=== PATIENT | male | born 1980 | race Caucasian/White ===

== ENCOUNTER 2018-09-17 14:34 | Emergency (ER) | payer SELFPAY ==
[~2018-09-17] VITALS: Ht 193 cm; Wt 135.8 kg
[~2018-09-17 14:34] MED LIST: GLYB5TAB3; OXYC1TAB19; TRAM-48
[2018-09-17 14:49] VITALS: BP 153/94
[2018-09-17] MEDS ORDERED: DOXY100C2 PO (15:03)
[2018-09-17] MEDS ORDERED: MUPI22OI2 TP (15:03)
--- NOTE | 2018-09-17 15:03 | PHYS DOC ---
Past History Past Medical History: Diabetes Past Surgical History: No Surgical History Smoking: Greater than 1 pack/day Alcohol Use: None Drug Use: None Adult General Chief Complaint Chief Complaint: SKIN PROBLEM HPI HPI She is a 38-year-old male who presents to the emergency department for evaluation. He states he just got out of detention about a week ago, and while in detention he has developed sores all over his body, with numerous scabs and small pustular lesions on his scalp, and extremities, and back. He does admit to recent amphetamine use, but states he was not using amphetamines wound present. He states his last tetanus was 3 years ago. Denies any other complaints, fevers, or chills. He denies any other medical problems although his previous record lists that he has a history of diabetes. Review of Systems Review of Systems Constitutional: Denies fever or chills [] Eyes: Denies change in visual acuity, redness, or eye pain [] HENT: Denies nasal congestion or sore throat [] Respiratory: Denies cough or shortness of breath [] GI: Denies abdominal pain, nausea, vomiting, bloody stools or diarrhea [] Musculoskeletal: Denies back pain or joint pain [] Neurologic: Denies headache, focal weakness or sensory changes [] Allergies Allergies Allergies Coded Allergies Type Severity Reaction Last Updated Verified Penicillins Allergy Severe 07/26/13 Yes Physical Exam Physical Exam PHYSICAL EXAM: CONSTITUTIONAL: Well developed, well nourished HEAD: normocephalic, atraumatic EENT: PERRL, EOMI. Conjunctivae normal color, sclerae non-icteric; moist mucous membranes. NECK: Supple, non-tender; no meningismus. LUNGS: Lungs CTA, breathing even and unlabored. Normal air movement. HEART: Regular rate and rhythm, no murmur CHEST: No deformity; non-tender ABDOMEN: The abdomen is soft, and non-tender, no masses or bruits. EXTREM: Normal ROM; no deformity, no calf tenderness. Normal pulses palpable in all extremities. There is no pedal edema. SKIN: No rash; no diaphoresis. There are several scabbed lesions, scattered on the patient's scalp, upper extremities, and lower extremities. There is no significant surrounding erythema, or any fluctuance or exam suggestion of abscess. NEURO: the patient is mildly sedated, but alert, appears under the influence of an intoxicant; normal speech and cognition; CN's grossly intact; strength grossly intact without focal deficit. BACK: No CVA TTP. EKG EKG [] Radiology/Procedures Radiology/Procedures [] Course & Med Decision Making Course & Med Decision Making I discussed importance of establishing care with a PCP, as well as obtaining counseling for amphetamine abuse. Dragon Disclaimer Dragon Disclaimer This electronic medical record was generated, in whole or in part, using a voice recognition dictation system. Departure Departure: Impression: Primary Impression: Skin pustule Additional Impression: Amphetamine abuse Disposition: HOME, SELF-CARE Condition: STABLE Referrals: PCP,NO (PCP) Patient Instructions: Cellulitis Scripts Mupirocin (MUPIROCIN) 22 Gm Oint...g. 22 GM TP TID for to affected area, #1 TUBE Prov: GISELLA MARSH MD 09/17/18 Doxycycline Hyclate (DOXYCYCLINE HYCLATE) 100 Mg Capsule 1 CAP PO BID for -, #14 CAP Prov: GISELLA MARSH MD 09/17/18 Problem Qualifiers GISELLA MARSH MD Sep 17, 2018 15:03
== END 2018-09-17 15:06 | disposition home or self-care (01) ==
LOC: ER 14:34
DX: L08.9 Local infection of the skin and subcutaneous tissue, unspecified (principal); F15.10 Other stimulant abuse, uncomplicated; E11.9 Type 2 diabetes mellitus without complications; F17.200 Nicotine dependence, unspecified, uncomplicated; Z88.0 Allergy status to penicillin
CPT/HCPCS: 82947; 99284

== ENCOUNTER 2019-07-07 05:10 | Emergency (ER) | payer SELFPAY ==
[~2019-07-07] VITALS: Ht 193 cm; Wt 135.8 kg
[~2019-07-07 05:10] MED LIST changes: +DOXY100C2 PO; +MUPI22OI2 TP
--- NOTE | 2019-07-07 05:16 | PHYS DOC ---
Past History Past Medical History: No Pertinent History Past Surgical History: No Surgical History Smoking: Greater than 1 pack/day Alcohol Use: None Drug Use: Heroin, Methamphetamine Adult General Chief Complaint Chief Complaint: ".. I was splinting some wood.. and the axe hit a knot... and it reinitiated off and hit my right leg...on this past friday... I took some amount mom's leftover clindamycin... It seemed to be getting better but today it s worse.. I cleaned it up real good.. use Episome salt compresses.." " I just my tetanus shot 18 days. ago when I got out of [facility] in [place]..." HPI HPI Patient is a 39 year old male who presents with above hx and complaints of 8 laceration to Rt. calf area. Pt. had hit leg with an axe while trying to splint wood. Injury occurred approximately 6 days ago. Pt. advised he had been take his mom left over clindamycin and using Epson salt soaks.. Wound seemed to be healing well until 2 days ago when he stopped the antibiotics. Patient has a area of erythema around the laceration site. No striations. No adenopathy and upper leg. There is some appreciable swelling and right ankle as compared to left ankle. Distal capillary refill is equal in right ankle to left ankle comparisons. Distal neurovascular intact. Does have pain at site of laceration. Patient states his tetanus is up-to-date as of 18 days ago when he had out of [facility] detention in [place]. No recent travel outside of the [place] area. Patient denies any history of immunosuppression. Does have a history of hepatitis C and B. No specific ill contacts. Patient does smoke tobacco. Review of Systems Review of Systems Constitutional: Denies fever or chills [] Eyes: Denies change in visual acuity, redness, or eye pain [] HENT: Denies nasal congestion or sore throat [] Respiratory: Denies cough or shortness of breath [] Cardiovascular: No additional information not addressed in HPI [] GI: Denies abdominal pain, nausea, vomiting, bloody stools or diarrhea [] : Denies dysuria or hematuria [] Musculoskeletal: Denies back pain or joint pain [] Integument: Complains of laceration to right calf and now cellulitis at area of laceration. Neurologic: Denies headache, focal weakness or sensory changes [] Endocrine: Denies polyuria or polydipsia [] All other systems were reviewed and found to be within normal limits, except as documented in this note. Family History Family History Noncontributory to presentation Current Medications Current Medications See nursing for home meds Allergies Allergies Allergies Coded Allergies Type Severity Reaction Last Updated Verified Penicillins Allergy Severe 07/26/13 Yes Physical Exam Physical Exam Constitutional: Well developed, well nourished, mild distress, non-toxic appearance. [] HENT: Normocephalic, atraumatic, bilateral external ears normal, oropharynx moist, no oral exudates, nose normal. [] Eyes: PERRLA, EOMI, conjunctiva normal, no discharge. [] Neck: Normal range of motion, no tenderness, supple, no stridor. [] Cardiovascular:Heart rate regular rhythm, no murmur [] Lungs & Thorax: Bilateral breath sounds equal at apex with scattered wheezes on auscultation [] Abdomen: Bowel sounds normal, soft, no tenderness, no masses, no pulsatile masses. [] Skin: Warm, dry, no erythema, no rash. [Tattoos Back: No tenderness, no CVA tenderness. [] Extremities: No tenderness, no cyanosis, no clubbing, ROM intact, no edema. [] Except findings in right leg as per history of present illness Neurologic: Alert and oriented X 3, normal motor function, normal sensory function, no focal deficits noted. [] Psychologic: Affect anxious, judgement normal, mood normal. [] EKG EKG [] Radiology/Procedures Radiology/Procedures [] Course & Med Decision Making Course & Med Decision Making Pertinent Labs and Imaging studies reviewed. (See chart for details). Laceration was washed. Dressing with Bactracin ointment applied. Patient received a IM injection of Rocephin and Bactrim double strength. Patient to continue the Epsom salt soaks afterwards massage area were Polysporin. Patient take Bactrim DS twice a day. Patient follow-up primary care. . Patient advised if any exacerbation of symptoms will need possible admission and IV antibiotics or even surgical debridement. Must follow-up Patient encouraged to stop smoking. Patient encouraged half-way in place and avoid crowds or travel. Patient encouraged to follow with [facility] for up to date information on [place] [facility] Impression: 1. Laceration 8 cm Rt. calf- -6 days old 2. Hx. Heptatis C and B 3. Tobacco Use 4. Cellulitis [] Dragon Disclaimer Dragon Disclaimer This electronic medical record was generated, in whole or in part, using a voice recognition dictation system. Departure Departure: Disposition: 01 HOME/RESIDENCE PRIOR TO ADM Condition: STABLE Referrals: PCP,NO (PCP) Morena Disclaimer This chart was dictated in whole or in part using Voice Recognition software in a busy, high-work load, and often noisy Emergency Department environment. It may contain unintended and wholly unrecognized errors or omissions. YAEL LOUIS MD Jul 07, 2019 05:16
[2019-07-07 05:25] VITALS: BP 159/102
[2019-07-07] MEDS ORDERED: MUPIROCIN 2% TOPICAL OINTMENT 22GM TUBE. TP SCH (05:30)
[2019-07-07] MEDS ORDERED: cefTRIAXone IM 1 GM VIAL IM ONE (05:30)
[2019-07-07] MEDS ORDERED: HYDROcodon/IBUPROFEN 7.5/200MG 1 TAB TABLET PO ONE (05:30)
[2019-07-07] MEDS ORDERED: SMZ/TMP 800/160MG TABLET. PO ONE (05:30)
== END 2019-07-07 06:10 | disposition home or self-care (01) ==
LOC: ER 05:10
DX: S81.811A Laceration without foreign body, right lower leg, initial encounter (principal); L03.115 Cellulitis of right lower limb; F17.200 Nicotine dependence, unspecified, uncomplicated; Z88.0 Allergy status to penicillin; W27.0XXA Contact with workbench tool, initial encounter; Y93.89 Activity, other specified; Y92.89 Other specified places as the place of occurrence of the external cause; Y99.8 Other external cause status
CPT/HCPCS: 96372; 99284; J0696

== ENCOUNTER 2021-02-12 09:08 | Emergency (ER) | payer SELFPAY ==
[~2021-02-12] VITALS: Ht 193 cm; Wt 135.8 kg
[~2021-02-12 09:08] MED LIST changes: -DOXY100C2 PO; +DOXY100C3 PO
--- NOTE | 2021-02-12 09:45 | RAD ---
XR CHEST 1V CLINICAL INDICATIONS: Altered mental status, shortness of air. PT UNABLE TO LISTEN TO BREATHING INSTR UCTIONS COMPARISON: April 28, 2009. Findings: Chronic decreased lung volumes are seen. There is mild bilateral central interstitial lung infiltrates or bronchitis which is new. No lung consolidation or lung mass or pleural effusion or pne umothorax is seen. The heart size, pulmonary vasculature, mediastinum and both mike are unremarkable. IMPRESSION: Mild bilateral central interstitial lung infiltrates or bronchitis which is new. Electronically signed by: Anshul Higuera MD (02/12/2021 9:43 AM) [id number]
--- NOTE | 2021-02-12 09:59 | PHYS DOC ---
Past History Past Medical History: No Pertinent History Past Surgical History: Other Additional Past Surgical Histo: right rotator cuff surgery Smoking: Greater than 1 pack/day Alcohol Use: Rarely Drug Use: Heroin, Methamphetamine General Adult EDM: Chief Complaint: MEDICAL CLEARANCE HPI: HPI: 40-year-old male past medical history of IV drug use, presents the ED brought in police custody after patient was arrested at his home, concern for unresponsive state after patient reports he injected IV heroin in his left arm prior to being arrested (reported to rn he swallowed it). Denies any suicidal thoughts, ideations or attempts. Denies any coingestants including alcohol or other illicit drugs. Did not hit his head or lose consciousness. In ed states "I don't feel right. I didn't want to get arrested." Takes no prescribed medications. 2mg IV narcan used and pt returned to his normal baseline mental status. In ed for medical clearance. Review of Systems: Review of Systems: Constitutional: Denies fever or chills Eyes: Denies change in visual acuity HENT: Denies nasal congestion or sore throat Respiratory: Denies cough or shortness of breath Cardiovascular: Denies chest pain or edema GI: Denies abdominal pain, nausea, vomiting, or diarrhea : Denies incontinence or saddle anesthesia Musculoskeletal: Denies back pain or joint pain Integument: Denies rash or blistering lesions Neurologic: Denies headache, neck pain, focal weakness or sensory changes Endocrine: Denies polyuria or polydipsia Lymphatic: Denies swollen glands Psychiatric: Denies depression or anxiety Allergies: Allergies: Allergies Coded Allergies Type Severity Reaction Last Updated Verified Penicillins Allergy Severe 07/26/13 Yes Physical Exam: PE: Constitutional: no acute distress, unkept but non-toxic appearance. HENT: Normocephalic, atraumatic, no signs of head trauma Eyes: PERRLA-2mm, EOMI, conjunctiva normal, no discharge. Neck: Normal range of motion, supple, no midline neck pain Cardiovascular: S1/2 present, regular rhythm Lungs & Thorax: Speaking in full sentences, bilateral equal chest rise, no tachypnea or increased work of breathing Abdomen: soft, no tenderness, Skin: Warm, dry, no rash or erythema Back: No midline spinal step-offs or tenderness, no CVA tenderness. [] Extremities: No tenderness, no cyanosis, no lower extremity edema Neurologic: Alert and oriented X 3, GCS15, normal motor function, normal sensory function, no focal deficits noted. [] Psychologic: Affect normal, judgement normal, mood normal. [] Current Patient Data: Vital Signs: Vital Signs Date Time Temp Pulse Resp B/P (MAP) Pulse Ox O2 Delivery O2 Flow Rate FiO2 02/12/21 09:08 97.0 75 18 145/92 (109) 100 Room Air EKG: EKG: [] Radiology/Procedures: Radiology/Procedures: IMAGING REPORT Signed PATIENT: JANY LEDESMA ACCOUNT: [id number] : 1980 LOCATION: ER AGE: 40 SEX: M EXAM STATUS: REG ER ORD. PHYSICIAN: BOBBY RAHMAN DO REASON: AMS,SOA. PT UNABLE TO LISTEN TO BREATHING INSTRUCTIONS PROCEDURE: CHEST AP ONLY XR CHEST 1V CLINICAL INDICATIONS: Altered mental status, shortness of air. PT UNABLE TO LISTEN TO BREATHING INSTRUCTIONS COMPARISON: April 28, 2009. Findings: Chronic decreased lung volumes are seen. There is mild bilateral central interstitial lung infiltrates or bronchitis which is new. No lung consolidation or lung mass or pleural effusion or pneumothorax is seen. The heart size, pulmonary vasculature, mediastinum and both mike are unremarkable. IMPRESSION: Mild bilateral central interstitial lung infiltrates or bronchitis which is new. Electronically signed by: Yeny Higuera MD (02/12/2021 9:43 AM) [id number] DICTATED AND SIGNED BY: YENY HIGUERA MD DATE: 02/12/21 0941 CC: PCP,NO; BOBBY RAHMAN DO ~MTH0 0 Heart Score: C/O Chest Pain: No Risk Factors: Risk Factors: DM, Current or recent (<one month) smoker, HTN, HLP, family history of CAD, obesity. Risk Scores: Score 0 - 3: 2.5% MACE over next 6 weeks - Discharge Home Score 4 - 6: 20.3% MACE over next 6 weeks - Admit for Clinical Observation Score 7 - 10: 72.7% MACE over next 6 weeks - Early Invasive Strategies Course & Med Decision Making: Course & Med Decision Making Pertinent Labs and Imaging studies reviewed. (See chart for details) Suspect mild opioid withdrawal after Narcan use. Patient calm, resting and in no active distress. X-ray concerning for possible bronchitis versus interstitial infiltrates, will cover with Z-Senthil. Pt is 100% on RA, protecting his airway. No recurrence of apnea after an hour and a half observation after Narcan use. Patient is medically cleared for detention. Will discharge home with strict ED return precautions were given for apnea, difficulties breathing or head injury. Encouraged urgent outpatient follow-up with PMD and RSI. Life-threatening processes were considered but are low suspicion at this time, given history, physical exam and ED workup. Pt was educated on all prescription medications and adverse effects. All patient's questions were answered and pt was stable at time of discharge. Life/limb-threatening differential includes but is not limited to, end organ damage/sepsis, trauma/abuse/neglect, neurologic deficit, alcohol/drug ingestion, toxidrome, suicidal/homicidal ideations plans or attempts, psychosis or mental illness resulting in self neglect and inability to care for self. I have spoken with the patient and/or caregivers. I explained the patient's condition, diagnoses and treatment plan based on the information available to me at this time. I have answered the patient and/or caregiver's questions and addressed any concerns. The patient and/or caregivers have a good understanding of patient's diagnosis, condition and treatment plan as can be expected at this point. Vital signs have been stable. Patient's condition is stable and appropriate for discharge from the emergency department. Patient will pursue further outpatient evaluation with primary care physician or other designated or consulting physician as outlined in the discharge instructions. The patient and/or caregivers are agreeable to this plan of care and follow-up instructions have been explained in detail. The patient and/or c aregivers have received these instructions in written form and have expressed an understanding of the discharge instructions. The patient and/or caregivers are aware that any significant change of condition or worsening of symptoms should prompt immediate return to this or the closest emergency department or call to 911. Morena Disclaimer: Morena Disclaimer: This electronic medical record was generated, in whole or in part, using a voice recognition dictation system. Departure Departure: Impression: Primary Impression: Heroin overdose Additional Impression: Bronchitis Disposition: HOME / SELF CARE / HOMELESS Condition: STABLE Referrals: PCP,NO (PCP) Follow up with your pcp in 1-2 days or [facility] [phone] OR [facility]-Dr. Giordano [phone] Patient Instructions: Acute Bronchitis, Heroin Abuse and Withdrawal Additional Instructions: RSI[facility] AND FOR SUBSTANCE ABUSE MANAGEMENT [address] [place] [address] 24-hour crisis line: [phone] EMERGENCY DEPARTMENT GENERAL DISCHARGE INSTRUCTIONS Thank you for coming to [facility] (ED) today and trusting us with you care. We trust that you had a positivie experience in our Emergency Department. If you wish to speak to the department management, you may call the director at [phone]. YOUR FOLLOW UP INSTRUCTIONS ARE FOLLOWS: 1. Do you have a private Doctor? If you do not have a private doctor, please ask for a resource list of physicians or clinics that may be able to assist you with follow up care. 2. The Emergency Physician has interpreted your x-rays. The X-Ray specialist will also review them. If there is a change in the findings, you will be notified in 48 hours when at all possible. 3. A lab test or culture has been done, your results will be reviewed and you will be notified if you need a change in treatment. ADDITIONAL INSTRUCTIONS AND INFORMATION: 1. Your care today has been supervised by a physician who is specially trained in emergency care. Many problems require more than one evaluation for a complete diagnosis and treatment. We recommend that you schedule your follow up appointment as recommended to ensure complete treatment of you illness or injury. If you are unable to obtain follow up care and continue to have a problem, or if your condition worsens, we recommend that you return to the ED. 2. We are not able to safely determine your condition over the phone nor are we able to give sound medical advice over the phone. For these safety reasons, if you call for medical advice we will ask you to come to the ED for further evaluation. 3. If you have any questions regarding these discharge instructions please call the ED at [phone]. SAFETY INFORMATION: In the interest of safety, wellness, and injury prevention; we encourage you to wear your sealbelt, if you smoke; quite smoking, and we encourage family to use a protective helmet for bicycling and other sporting events that present an increased risk for head injury. IF YOUR SYMPTOMS WORSEN OR NEW SYMPTOMS DEVELOP, OR YOU HAVE CONCERNS ABOUT YOUR CONDITION; OR IF YOUR CONDITION WORSENS WHILE YOU ARE WAITING FOR YOUR FOLLOW UP APPOINTMENT; EITHER CONTACT YOUR PRIMARY CARE DOCTOR, THE PHYSICIAN WHOSE NAME AND NUMBER YOU WERE GIVEN, OR RETURN TO THE ED IMMEDIATELY. Scripts Azithromycin (AZITHROMYCIN TABLET) 250 Mg Tablet 1 PKG PO UD for lung nodule for 5 Days, #6 TAB 0 Refills 2 the first day followed by 1 for days 2-5 Prov: BOBBY RAHMAN DO 02/12/21 BOBBY RAHMAN DO Feb 12, 2021 09:59
[2021-02-12 10:15] VITALS: BP 138/75
[2021-02-12 10:45] LABS: BASO # 0.1 x10^3/uL (0.0-0.2); BASO % 1 % (0-3); EOS # 0.5 x10^3/uL (0.0-0.7); EOS % 5 % (0-3); HEMATOCRIT 38.3 % (39.0-53.0); LYMPH # 1.4 x10^3/uL (1.0-4.8); LYMPH % 15 % (24-48); MEAN CORPUSCULAR HEMOGLOBIN 28 pg (25-35); MEAN CORPUSCULAR HGB CONC 34 g/dL (31-37); MEAN CORPUSCULAR VOLUME 84 fL (79-100); MONO # 0.6 x10^3/uL (0.0-1.1); MONO % 6 % (0-9); NEUT # 7.1 x10^3uL (1.8-7.7); NEUT % 74 % (31-73); PLATELET COUNT 249 x10^3/uL (140-400); RED BLOOD COUNT 4.58 x10^6/uL (4.30-5.70); RED CELL DISTRIBUTION WIDTH 13.2 % (11.5-14.5); WHITE BLOOD COUNT 9.7 x10^3/uL (4.0-11.0)
[2021-02-12] MEDS ORDERED: AZIT250T6 PO (11:00)
[2021-02-12 11:05] LABS: CALCIUM 9.1 mg/dL (8.5-10.1); CREATININE 0.9 mg/dL (0.7-1.3); GFR 92.5; POTASSIUM 3.8 mmol/L (3.5-5.1)
[2021-02-12 11:08] LABS: ALBUMIN 3.5 g/dL (3.4-5.0); ALBUMIN/GLOBULIN RATIO 0.8 (1.0-1.7); TOTAL BILIRUBIN 0.3 mg/dL (0.2-1.0); TOTAL PROTEIN 7.7 g/dL (6.4-8.2)
== END 2021-02-12 12:29 ==
LOC: ER 09:08
DX: T40.1X1A Poisoning by heroin, accidental (unintentional), initial encounter (principal); J40 Bronchitis, not specified as acute or chronic; F17.200 Nicotine dependence, unspecified, uncomplicated; F15.10 Other stimulant abuse, uncomplicated; Z88.0 Allergy status to penicillin; Y92.89 Other specified places as the place of occurrence of the external cause
CPT/HCPCS: 36415; 71045; 80053; 85025; 99284; G0480